=== PATIENT | female | born 1940 | race Caucasian/White ===

== ENCOUNTER 2016-11-22 09:24 | Inpatient (IN) | payer OTHER, MEDICARE ==
[~2016-11-22] VITALS: Ht 162.6 cm; Wt 81.6 kg
[2016-11-22 10:57] LABS: PLATELET COUNT 263 x10^3mcL (130-400); RED CELL DISTRIBUTION WIDTH 12.6 % (11.5-14.5)
[2016-11-22 11:45] LABS: ATYPICAL LYMPH 1 %; BAND NEUTROPHIL 2 % (0-10); BASOPHIL 0 % (0-2); MONOCYTE 3 % (0-7); SEGMENTED NEUTROPHILS 83 % (37-75)
[2016-11-22 11:48] LABS: rbc morphology (normal/abnorm) NORMAL (NORMAL)
[2016-11-22 11:49] LABS: PLATELET MORPHOLOGY PLATELETS NORMAL
[2016-11-22 12:04] LABS: microscopic required? YES
[2016-11-22 12:06] LABS: urine erythrocyte 2+ (NEGATIVE)
[2016-11-22] MEDS ORDERED: HCTZ/LISINOPRIL1 TAB PO (13:36)
[2016-11-22 14:02] LABS: CALCIUM 8.9 mg/dL (8.5-10.1); CARBON DIOXIDE 30.2 mmol/L (21-32); CHLORIDE SERUM 103 mmol/L (98-107); CREATININE SERUM 1.1 mg/dL (0.6-1.0); GLUCOSE SERUM 121 mg/dL (74-106); POTASSIUM SERUM 3.3 mmol/L (3.5-5.1); SODIUM SERUM 142 mmol/L (136-145)
[2016-11-22 14:15] VITALS: BP 135/68
[2016-11-22 14:19] VITALS: BP 135/68
[2016-11-22 15:22] LABS: MAGNESIUM 2.1 mg/dL (1.8-2.4); PHOSPHOROUS 2.8 mg/dL (2.5-4.9)
[2016-11-22 15:35] LABS: FREE T4 1.66 ng/dL (0.76-1.46); FREE THYROXINE INDEX 4.3 ug/dL (1.4-4.5)
[2016-11-22 15:46] LABS: T3 TOTAL 1.14 ng/mL
[2016-11-22 18:25] VITALS: BP 116/67
[2016-11-22 21:49] VITALS: BP 131/53
[2016-11-23 05:34] VITALS: BP 148/70
[2016-11-23 06:18] LABS: CALCIUM 8.5 mg/dL (8.5-10.1); CHLORIDE SERUM 102 mmol/L (98-107); CREATININE SERUM 0.9 mg/dL (0.6-1.0); GLUCOSE SERUM 94 mg/dL (74-106); POTASSIUM SERUM 3.7 mmol/L (3.5-5.1); SODIUM SERUM 141 mmol/L (136-145)
[2016-11-23 06:25] LABS: BASOPHIL % 0.5 % (0-2); PLATELET COUNT 294 x10^3mcL (130-400); RED CELL DISTRIBUTION WIDTH 12.6 % (11.5-14.5)
[2016-11-23 07:30] LABS: AMPHETAMINE QUAL UR NONE DETECTED (NEG <=1000)
[2016-11-23 09:21] VITALS: BP 127/63
[2016-11-23 13:23] VITALS: BP 138/63
[2016-11-23 17:34] VITALS: BP 154/83
[2016-11-23 21:50] VITALS: BP 144/78
[2016-11-24 05:57] VITALS: BP 152/72
[2016-11-24 07:09] LABS: BASOPHIL % 0.5 % (0-2); PLATELET COUNT 316 x10^3mcL (130-400); RED CELL DISTRIBUTION WIDTH 12.6 % (11.5-14.5)
[2016-11-24 10:00] VITALS: BP 150/62
[2016-11-24] MEDS ORDERED: LEVAQUIN750 MG PO (11:12)
[2016-11-24 14:37] VITALS: BP 139/69
== END 2016-11-24 15:25 | disposition home or self-care (01) | DRG 871 ==
LOC: ED 09:24 → DU 13:15
PROVIDERS: Emergency Medicine; ADMIT Family Medicine
DX: R78.81 Bacteremia (principal); N17.0 Acute kidney failure with tubular necrosis; N39.0 Urinary tract infection, site not specified; E44.1 Mild protein-calorie malnutrition; E87.6 Hypokalemia; I10 Essential (primary) hypertension; E78.5 Hyperlipidemia, unspecified; E66.9 Obesity, unspecified; Z68.30 Body mass index [BMI] 30.0-30.9, adult
CPT/HCPCS: 84439; J0696; J1580; J7030